=== PATIENT | male | born 1970 | race Caucasian/White ===

== ENCOUNTER 2018-09-04 10:28 | Emergency (ER) | payer OTHER ==
[2018-09-04 11:09] LABS: ADD UMIC NO; UR ASCORBIC ACID NEGATIVE (NEGATIVE); UR BILIRUBIN (Dip) NEGATIVE (NEGATIVE); UR BLOOD (Dip) NEGATIVE (NEGATIVE); UR CLARITY CLEAR (CLEAR); UR COLOR YELLOW (YELLOW); UR GLUCOSE (Dip) NEGATIVE (NEGATIVE); UR KETONES (Dip) NEGATIVE (NEGATIVE); UR LEUKOCYTE ESTERASE (Dip) NEGATIVE Leu/ul (NEGATIVE); UR NITRITE (Dip) NEGATIVE (NEGATIVE); UR SPECIFIC GRAVITY (Dip) 1.008 (1.003-1.030); UR TOTAL PROTEIN (Dip) NEGATIVE (NEGATIVE); UR UROBILINOGEN (Dip) NEGATIVE (NEGATIVE)
[2018-09-04] MEDS: AZITHROMYCIN 500 MG TAB PO (11:19)
[2018-09-04] MEDS: CEFTRIAXONE 250 MG INJ IM (11:19)
[2018-09-04] MEDS: LIDOCAINE 1% (MDV) 20 ML INJ SC (11:20)
== END 2018-09-04 11:42 | disposition home or self-care (01) ==
LOC: FTE 11:42
DX: R30.0 Dysuria (principal)
CPT/HCPCS: 81003; 87591; 96372; 99284-25